=== PATIENT | male | born 1955 | race African-American/Black ===

== ENCOUNTER 2019-01-11 22:33 | Inpatient (IN) ==
[2019-01-11] MEDS ORDERED: ASPIRIN PR ONE (22:45)
[2019-01-11] MEDS ORDERED: ASPIRIN PO ONE (22:45)
[2019-01-11] MEDS ORDERED: SOLU-MEDROL IV ONE (22:53)
[2019-01-11] MEDS ORDERED: DUONEB (A & A) INH ONE (22:53)
[2019-01-11] MEDS ORDERED: LASIX IV ONE (23:20)
[2019-01-12 00:41] LABS: BASO# 0.03 X1000 (0.0-0.2); BASO% 0.5 % (0.0-0.8); EOS# 0.15 X1000 (0.0-0.7); EOS% 2.6 % (0.0-10.0); HEMATOCRIT 23.8 % (42.0-52.0); HEMOGLOBIN 7.4 g/dL (14.0-18.0); LYMPH# 0.95 X1000 (1.2-3.4); LYMPH% 16.3 % (20.5-51.1); MCHC 31.1 g/dL (33-37); MCV 86.9 FL (81-99); MONO# 0.85 X1000 (0.11-0.59); MONO% 14.6 % (1.7-9.3); MPV 10.6 FL (7.4-10.4); NEUT# 3.86 X1000 (1.4-6.5); PLT 162 X1000 (130-400); RBC 2.74 XMIL (4.7-6.1); RDW 18.1 % (11.5-14.5); WBC 5.84 X1000 (4.8-10.8)
[2019-01-12 00:47] LABS: INR 1.35; PROTIME 17.7 Seconds (11.0-16.0); PTT 37.1 Seconds (22.3-41.8)
[2019-01-12 01:00] LABS: ALB/GLOB RATIO 0.9; ALBUMIN 3.9 g/dL (3.5-5.0); CALCIUM 8.9 mg/dL (8.8-10.2); CREATININE 5.8 mg/dL (0.7-1.2); POTASSIUM 4.7 mmol/L (3.5-5.1); TOTAL BILIRUBIN 1.49 mg/dL (0.20-1.00); TOTAL PROTEIN 8.1 g/dL (6.3-8.3)
[2019-01-12 01:23] LABS: CK INDEX 2.6 (0.0-2.5); CK-MB 7.46 ng/mL (0.0-5.0)
--- NOTE | 2019-01-12 01:28 | PROVIDER DOCUMENTATION ---
This chart was entered by Christina Samuel Scribe, acting as scribe for Nadir Cabrera MD. HPI-Respiratory General - General Chief Complaint: Shortness of Breath Stated Complaint: SOB Time Seen by Provider: 01/11/19 22:50 Source: patient Allergies/Adverse Reactions: Patient Allergies Allergy/AdvReac Type Severity Reaction Status Date / Time sulfamethoxazole Allergy Unknown Verified 03/17/18 07:32 [From Bactrim] trimethoprim [From Bactrim] Allergy Unknown Verified 03/17/18 07:32 Home Medications: Home Medication List Medication Instructions Recorded Confirmed Last Taken Type Tamsulosin [Flomax] 0.4 mg PO DAILY 10/03/17 10/11/18 10/03/17 09:00 History ATORVAstatin [Lipitor] 10 mg PO QHS 03/17/18 10/11/18 Unknown History Aspirin 325 mg PO DAILY tablet 03/26/18 10/11/18 Unknown Rx Nitroglycerin Sl [Nitroglycerin] 0.4 mg SL PRN PRN tablet 03/26/18 10/11/18 Unknown Rx Famotidine [Pepcid] 40 mg PO BID #60 tab 09/28/18 10/11/18 Unknown Rx Albuterol Sulfate [Proair Hfa] 8.5 gm IH Q4H PRN PRN 10/11/18 10/11/18 Unknown History Insulin Humulin 70/30 [Humulin 30 unit SUBQ BID 10/11/18 10/11/18 Unknown History 70/30] Iron Fum,Ps/Folic/Bcomp,C No.9 1 cap PO DAILY 10/11/18 10/11/18 Unknown History [Folivane-Plus Capsule] Amlodipine [Norvasc] 5 mg PO DAILY #30 tab 10/13/18 Unknown Rx Carvedilol [Coreg] 25 mg PO BID #60 tab 10/13/18 Unknown Rx Furosemide [Lasix] 80 mg PO DAILY #30 tab 10/13/18 Unknown Rx Hydralazine [Apresoline] 10 mg PO TID #90 tab 10/13/18 Unknown Rx Isosorbide Dinitrate [Isordil] 10 mg PO TID #90 tab 10/13/18 Unknown Rx - History of Present Illness-Resp Nature of Presenting Problem: pt is a 63 yr old male presenting with 1 week hx of shortness of breath and edema, worsening tonight. pt denies any chest pain. pt hx of chf, CAD, COPD Quality of Pain: reports: none Severity in ED: reports: moderate Onset/Duration: reports: 1 week ago Timing: reports: still present, changing over time, getting worse Cough Quality/Degree: reports: no cough Episode Frequency: frequent episodes Current Respiratory Medication Therapy: Initiated albuterol (proair) Modifying Factors: improves with: albuterol inhaler (without relief) Associated Symptoms: reports: shortness of breath. denies: chest pain/soreness , cough Similar Symptoms Previously?: Yes Recently seen or treated by another doctor?: Yes Review of Systems - Adult - REVIEW OF SYSTEMS - ADULT Constitutional: reports: fatique. denies: chills, fever Eyes: denies: blurred vision, double vision Ears, Nose, Mouth & Throat: denies: ear pain, sinus problem, throat pain Cardiovascular: denies: chest pain, palpitations, syncope Respiratory: reports: shortness of breath. denies: cough Gastrointestinal: reports: no symptoms reported Genitourinary: reports: no symptoms reported Musculoskeletal: reports: no symptoms reported Integumentary: reports: no symptoms reported Neurological: denies: dizziness/vertigo, headache/migraines Psychiatric: reports: no symptoms reported Endocrine: reports: no symptoms reported Hematologic/Lymphatic: reports: no symptoms reported Allergic/Immunologic: reports: no symptoms reported All Other Systems: Reviewed and Negative Past History - Adult - PAST MEDICAL HISTORY-ADULT Review of Records: reports: Old Records Reviewed, Nursing Assessment Review, Medications Reviewed, Social history reviewed & non-contributory. Major Childhood Illnesses: reports: denies history Cardiovascular: reports: cardiac disease, angina, HTN, hyperlipidemia, ME, other (stent placement). denies: blood clots, murmur Respiratory: reports: denies history Gastrointestinal: reports: denies history Obstetrical/Gynecological: reports: denies history Genitourinary: reports: denies history Musculoskeletal: reports: denies history Neurological: reports: denies history Endocrine/Immune: reports: Diabetes Other Conditions: reports: denies history - PRIOR SURGERIES/PROCEDURES Surgical/Procedure History: reports: CABG - PRIOR HOSPITALIZATIONS Prior Hospitalizations: reports: for other non-related - IMMUNIZATION STATUS Childhood Immunizations: See Nurse Assessment Flu Vaccine: See Nurse Assessment - FAMILY HISTORY Family History: reviewed, not pertinent - SOCIAL HISTORY Smoking: non-smoker Substance Use: denies Living Situation: family Physical Exam-General - PHYSICAL EXAM-ADULT Initial Vital Signs Reviewed: Yes - CONSTITUTIONAL General Appearance: appears well, alert, no apparent distress - EYES Eyes: PERRL/EOMI - HEAD, EARS, NOSE, MOUTH & THROAT HENMT: normocephalic/atraumatic, moist mucous membranes - NECK Neck: non-tender, full range of motion, supple, normal inspection - RESPIRATORY Respiratory: chest non-tender, lungs clear, normal breath sounds, decreased breath sounds, increased rate - CARDIOVASCULAR Cardiovascular: normal peripheral pulses, regular rate, rhythm - GASTROINTESTINAL (ABDOMEN) Abdominal Exam: normal bowel sounds, non tender, soft - LYMPHATIC Lymphatic: no adenopathy - MUSCULOSKELETAL Extremity: pedal edema (3+ pitting edema) - SKIN Integumentary: normal color, normal turgor, warm/dry - NEUROLOGIC Neurologic: grossly normal, no motor/sensory deficits - PSYCHIATRIC Psych/Mental Status: normal mood/affect Progress - PLAN OF CARE/RESULTS Progress/Plan/Lab Results: Vital Signs - 8 hr 01/11/19 22:39 01/11/19 23:40 01/11/19 23:56 Temperature 98.3 F Pulse Rate 76 85 Respiratory Rate 22 16 Blood Pressure 181/79 O2 Sat by Pulse Oximetry 100 100 01/12/19 00:00 01/12/19 00:10 01/12/19 00:15 Temperature Pulse Rate 77 77 77 Respiratory Rate 19 20 19 Blood Pressure 162/68 162/68 O2 Sat by Pulse Oximetry 100 97 98 01/12/19 00:20 01/12/19 00:30 01/12/19 00:40 Temperature Pulse Rate 76 75 76 Respiratory Rate 19 16 20 Blood Pressure O2 Sat by Pulse Oximetry 98 99 98 01/12/19 00:50 01/12/19 00:56 Temperature Pulse Rate 76 76 Respiratory Rate 21 19 Blood Pressure 159/81 O2 Sat by Pulse Oximetry 95 100 Laboratory Results - last 24 hr 01/11/19 01/11/19 01/11/19 23:00 23:00 23:00 WBC 5.84 RBC 2.74 L Hgb 7.4 L Hct 23.8 L MCV 86.9 MCH 27.0 MCHC 31.1 L RDW Std Deviation 18.1 H Plt Count 162 MPV 10.6 H Neut % (Auto) 66.0 Lymph % (Auto) 16.3 L Beaver % (Auto) 14.6 H Eos % (Auto) 2.6 Baso % (Auto) 0.5 Neut # (Auto) 3.86 Lymph # (Auto) 0.95 L Beaver # (Auto) 0.85 H Eos # (Auto) 0.15 Baso # (Auto) 0.03 PT INR PTT (Actin FS) Sodium 139 Potassium 4.7 Chloride 104 Carbon Dioxide 17 L Anion Gap 18 BUN 105 H Creatinine 5.8 H Estimated GFR/1.73 m2 12 BUN/Creatinine Ratio 18 Glucose 161 H Calculated Osmolality 314 Calcium 8.9 Total Bilirubin 1.49 H AST 24 ALT 33 Alkaline Phosphatase 308 H Creatine Kinase 282 H Creatine Kinase Index 2.6 H CK-MB (CK-2) 7.46 H Troponin T Vla-U-Aiqlcqyaous Pept 9521 H Total Protein 8.1 Albumin 3.9 Globulin 4.2 Albumin/Globulin Ratio 0.9 01/11/19 01/11/19 23:00 23:00 WBC RBC Hgb Hct MCV MCH MCHC RDW Std Deviation Plt Count MPV Neut % (Auto) Lymph % (Auto) Beaver % (Auto) Eos % (Auto) Baso % (Auto) Neut # (Auto) Lymph # (Auto) Beaver # (Auto) Eos # (Auto) Baso # (Auto) PT 17.7 H INR 1.35 PTT (Actin FS) 37.1 Sodium Potassium Chloride Carbon Dioxide Anion Gap BUN Creatinine Estimated GFR/1.73 m2 BUN/Creatinine Ratio Glucose Calculated Osmolality Calcium Total Bilirubin AST ALT Alkaline Phosphatase Creatine Kinase Creatine Kinase Index CK-MB (CK-2) Troponin T 0.233 H Laa-F-Rmttycppurd Pept Total Protein Albumin Globulin Albumin/Globulin Ratio Orders Category Date Time Status Cardiac Monitoring DIRECTED Care 01/11/19 22:46 Active Oxygen Therapy- ED Nursing DIRECTED Care 01/11/19 22:46 Active Saline Loc NOW Care 01/11/19 22:46 Active CHEST-2 VIEWS [RAD] Stat Exams 01/11/19 22:46 Taken CBC WITH ELECTRONIC DIFF [HEME] Stat Lab 01/11/19 23:00 Completed CK PROFILE [SP CHEM] Stat Lab 01/11/19 23:00 Completed COMPREHENSIVE METABOLIC PANEL [CHEM] Stat Lab 01/11/19 23:00 Completed PRO B-NATRIURETIC PEPTIDE Stat Lab 01/11/19 23:00 Completed PROTIME WITH INR [COAG] Stat Lab 01/11/19 23:00 Completed PTT [COAG] Stat Lab 01/11/19 23:00 Completed TROPONIN T Stat Lab 01/11/19 23:00 Completed Albuterol 2.5MG/Ipratrop 0.5MG [Duoneb (A & A)] Med 01/11/19 22:53 Discontinued 3 ml INH NOW ONE Aspirin Med 01/11/19 22:45 Discontinued 300 mg AK NOW ONE Aspirin Med 01/11/19 22:45 Discontinued 325 mg PO NOW ONE Furosemide [Lasix] Med 01/11/19 23:20 Discontinued 60 mg IV NOW ONE Methylprednisolone Sod Succ [Solu-Medrol] Med 01/11/19 22:53 Discontinued 60 mg IV NOW ONE Aerosol Treatments Routine Oth 01/11/19 22:54 Completed Aerosol Treatments Stat Oth 01/11/19 22:54 Completed CP/SOB/Palp >45 yrs of Age Stat Oth 01/11/19 22:45 Ordered EKG [EKG] Stat Ther 01/11/19 22:46 Ordered A/P: CHF exacerbation. Pt has pitting edema +3 to mid lower leg. elevation of troponin. Gave [address] Lux will admit. Result Diagrams: 01/11/19 23:00 01/11/19 23:00 - EKG 1 Time of EKG reading by physician:: 22:44 EKG Read and Signed by:: Nadir Cabrera EKG Interpretation (*Must complete 3 of following elements*): Abnormal (cannot rule out anteroir infarct, age undetermined. st and t wave abnormality, consider inferolateral ischemia) Rate: 78 Rhythm: accelerated junctional rhythm [place]: normal - CONSULTS/PCP/HOSPITALIST Notification #1 *Consult/PCP/Hospitalist*: Dr Lux Time Discussed: 01:26 Consult Disposition: Admit Departure - Departure Date of Disposition Decision: 01/12/19 Time of Disposition Decision: :23 DIAGNOSIS: CHF exacerbation Disposition: ADMITTED INPATIENT 09 Certified Medical Emergency: Emergent Condition: Stable Additional Freetext Instructions: ED Follow Up Instructions: You have been treated by a care provider in the Emergency Department. These instructions are being provided to you so you can have an understanding of how to care for yourself upon discharge. Upon discharge from the Emergency Department, you are responsible for making arrangements for follow-up care by a physician of your choice. Take all prescribed medications as directed. Return to the Emergency Department immediately for any new or worsening symptoms. You may call the Physician Referral phone number at [phone] to obtain a list of Physicians who are taking new patients. Referrals and Follow-Ups: Bunny Billy MD [Primary Care Provider] - - Critical Care Note This patient required my direct & personal management of CC.: No Attestation - Physician/ LISSETH Attestation Patient care was provided by Advanced Practice Provider:: No The physician spent face to face time with patient:: Yes Advanced Practice Provider documentation review:: Supervising physician onsite and consulted in the evaluation and care of this patient. The physician did have a face to face encounter with the patient. This chart was documented by the indicated scribe, (Christina Samuel Scribe) and accurately reflects the services I performed and decisions made by me, Nadir Cabrera MD, as attested by the provider's signature.
--- NOTE | 2019-01-12 03:04 | HISTORY AND PHYSICAL ---
CHIEF COMPLAINT: Shortness of breath. HISTORY OF PRESENT ILLNESS: This is a 64-year-old male with history of CHF and chronic renal failure for which it has previously been recommend he get dialysis, but has refused, unfortunately, in the past but he does have dilated cardiomyopathy and chronic renal failure which, at this point, is stage IV. He came in with progressive shortness of breath over the last couple days, some cough. Positive orthopnea, positive paroxysmal nocturnal dyspnea. He does not have some chest pressure. No changes in his medications. He was here, last admitted in October, about 3 months ago. I think at that time he had CHF exacerbation as well. Workup in the ER this time also consistent with fulminant pulmonary edema. He is anemic, but he is at baseline. He has got renal failure, but he is close to his baseline. His BUN has been this high before. His creatinine has this high before, if not higher in September. Troponin is elevated, but it has been elevated previously as well. In any case, admitted for acute congestive heart failure exacerbation, systolic. PAST MEDICAL HISTORY: 1. Systolic heart failure, EF of about 30% based on his last echo, with wall motion abnormalities. 2. Chronic renal failure stage 4. 3. CAD status post CABG. 4. Insulin-dependent diabetes. 5. Hypertension. 6. Hyperlipidemia. 7. BPH. 8. History of osteomyelitis his right great toe with removal. This was done at [facility]. PAST SURGICAL HISTORY: 1. The Achilles tendon surgery. 2. Right great toe amputation. 3. CABG, which was 2000. 4. PCI. 5. Cataract surgery. FAMILY HISTORY: CAD in mother and father. Diabetes in son with hypertension. SOCIAL HISTORY: Nonsmoker. No alcohol. . REVIEW OF SYSTEMS: Constitutional: No weight gain. Chest: Chest pain. Pulmonary: As described. gastrointestinal: No vomiting. He has had some intermittent nausea. No emesis. Genitourinary: Diminished urine output. PHYSICAL EXAM: VITAL SIGNS: Blood pressure is 153/70, heart rate 73, respiratory rate 20, temperature was 98.3 degrees. GENERAL: A well-developed male in some distress associated with edema. EYES: Pupils equal, round, reactive to light. Extraocular moves were intact. EAR/NOSE/THROAT: Moist mucous membranes. NECK: Supple. CARDIOVASCULAR: Regular rate and rhythm. No murmurs, gallops, or rubs, although diminished. PULMONARY: He had fairly clear, some faint rales at the bases, but really not as bad as I would anticipate. GASTROINTESTINAL: Soft, nontender, nondistended. Bowel sounds are positive. EXTREMITIES: He had 2 to 3+ in his left lower extremity. His right extremity is in a cast. NEUROLOGIC: Nonfocal. MUSCULOSKELETAL: 4/5 in all 4 extremities. SKIN: Clean, dry, intact. LABORATORY DATA: Today BUN and creatinine 105 and 5.8, when he was discharged it was 72 and 3.9. Hemoglobin and hematocrit 7 and 23, but it has been that way since September. I do not think we did a blood gas today. Chest x-ray clearly shows bilateral interstitial edema which has worsened since last admission with cardiomegaly. I do not clearly see an infiltrate. He has cephalization of vessels. There may be some right middle lobe, and I think that maybe is cephalization of vessels. EKG did not show anything ischemic. ASSESSMENT: A 63-year-old gentleman with history of congestive heart failure, who presents with congestive heart failure exacerbation. 1. Acute congestive heart failure exacerbation, systolic. We will continue diuresis, which will probably have to be high dose because of his renal dysfunction. Follow closely. Continue other supportive measures. He had an echo done about 3 months ago, which showed an ejection fraction at 30%, which is where he has been. I am not going to repeat that, at this point; however, I will go and get on cardiology to reconsult. Ischemic workup was negative. At this point, it just may have progressed to where dialysis ultrafiltration is the next step and just have to talk him into requiring that. We will follow. 2. Acute chronic obstructive pulmonary disease exacerbation. His wheezing has improved. I am going to hold further steroids, they were instituted in the in the ER. 3. Diabetes. We will check A1c. Follow blood sugars. Continue sliding scale insulin. 4. Chronic renal failure stage 4. I think he is kind of at baseline for him, although with his progressive azotemia I think we are going to run into some issues if we do not continue to. We may have to more strongly consider dialysis. I will go ahead and consult Dr. Marc for evaluation as well. cc: MD Bunny Martinez MD
[2019-01-12] MEDS ORDERED: NITROGLYCERIN SL PRN (03:05)
[2019-01-12] MEDS ORDERED: DUONEB (A & A) INH PRN (03:05)
[2019-01-12] MEDS: DUONEB (A & A) INH SCH ×4 (04:30→21:00)
[2019-01-12 04:34] LABS: CK INDEX 2.8 (0.0-2.5); CK-MB 8.52 ng/mL (0.0-5.0)
[2019-01-12] MEDS: HUMULIN R SUBQ SCH ×5 (06:26→23:02)
[2019-01-12] MEDS: HEPARIN SUBQ SCH ×2 (06:30→17:01)
[2019-01-12 06:32] LABS: URINE SOURCE CATH
[2019-01-12 06:35] LABS: BILIRUBIN URINE NEGATIVE (NEGATIVE); BLOOD URINE NEGATIVE (NEGATIVE); COLOR YELLOW; GLUCOSE URINE NEGATIVE (NEGATIVE); KETONE URINE NEGATIVE (NEGATIVE); LEUKOCYTES URINE TRACE (NEGATIVE); NITRITE URINE NEGATIVE (NEGATIVE); PROTEIN URINE TRACE mg/dL (NEGATIVE); SP GRAVITY URINE 1.001; TURBIDITY URINE CLEAR (CLEAR); UROBILINOGEN URINE NORMAL (NORMAL)
[2019-01-12 06:36] LABS: UR EPITHELIAL CELLS <10 /HPF (<10); URINE BACTERIA NEGATIVE /HPF; URINE RBC <10 /HPF (<10); URINE WBC <10 /HPF (<10)
--- NOTE | 2019-01-12 07:24 | Diag Imaging Result Doc PS360 ---
EXAM: CHEST-2 VIEWS 01/11/2019 HISTORY: sob TECHNIQUE: AP and lateral chest COMMENT: There are sternotomy wires. There is cardiomegaly. There is a left coronary stent and multiple anterior mediastinal surgical clips are present. There is increased alveolar and interstitial opacity compared to 10/11/2018. The atelectasis previously present in the lung bases has improved. IMPRESSION: Cardiomegaly and pulmonary edema. Electronically signed by Rashid Bean 01/12/2019 7:22 AM
[2019-01-12 08:09] LABS: CK INDEX 2.7 (0.0-2.5); CK-MB 7.62 ng/mL (0.0-5.0)
--- NOTE | 2019-01-12 08:14 | EKG Report ---
Test Performed on : 01/11/2019 10:44:24 PM Test Reason : sob Blood Pressure : / mmHG Vent. Rate : 078 BPM Atrial Rate : 078 BPM P-R Int : 000 ms QRS Dur : 102 ms QT Int : 402 ms P-R-T Axes : 000 006 194 degrees QTc Int : 458 ms Accelerated Junctional rhythm. Cannot rule out Anterior infarct , age undetermined ST & T wave abnormality, consider inferolateral ischemia Abnormal ECG When compared with ECG of 12-OCT-2018 08:56, Junctional rhythm. has replaced Sinus rhythm. Unconfirmed Result
--- NOTE | 2019-01-12 09:09 | NEPHROLOGY CONSULTATION ---
DATE: 01/12/2019 REASON FOR ADMISSION: Increased work of breathing. REASON FOR CONSULTATION: Acute kidney injury on chronic kidney disease stage 4. CONSULTING PHYSICIAN: Siddharth Lux MD HISTORY OF PRESENT ILLNESS: Mr. Lomeli is a 64-year-old male who is known to our outpatient services for chronic kidney disease stage 4 to 5. The patient was last seen in our office in October with a BUN of 72 and a creatinine of 3.9. His baseline is about 3.9 to 4.5. The patient stated that he started having increased work of breathing 2 weeks prior to coming into the emergency room. He stated it started getting worse on the day that he did present. He has a history of CHF with chronic renal failure with previous recommendations of starting hemodialysis. The patient had refused at that time. He does have a history of dilated cardiomyopathy with positive orthopnea, paroxysmal nocturnal dyspnea. The patient states that he has been eating well. He has just trace lower extremity edema that he has noted to the lower extremities. He has an appointment in our office this a.m. and unfortunately has had an exacerbation of his CHF. In the emergency room it was consistent with fulminant pulmonary edema. He remains anemic, but is at his historical baseline. Creatinine is elevated at 5.8 with a BUN of 105. The patient was treated with diuretic therapy IV. Troponins are elevated, more than likely secondary to his chronic renal failure. Subsequently, the patient does deny that he has any fever or chills. No nausea or vomiting. No recent diarrhea. No increase in his lower extremity swelling. No complaints of chest pain. Positive for increased work of breathing. The patient is to be admitted for congestive heart failure with exacerbation and systolic heart failure and acute kidney injury. PAST MEDICAL HISTORY: Systolic heart failure, his last noted ejection fraction was noted to be 30%, performed on 10/11/2018; CKD stage 4 with a baseline creatinine of 3.9 to 4.4; coronary artery disease, status post CABG; insulin-dependent diabetes mellitus type 2, hypertension, hyperlipidemia, BPH; history of osteomyelitis to the right great toe with removal, this was performed at [facility]. He has anemia of chronic disease. He has osteodystrophy of chronic disease. PAST SURGICAL HISTORY: Achilles tendon surgery, right great toe amputation, CABG in 2000. He has had a PCI, cataract surgery. SOCIAL HISTORY: He is . He lives with his spouse. He denies alcohol or illicit drug use. No smoking. FAMILY HISTORY: Mother and father with coronary artery disease, diabetes, son with hypertension. No end-stage renal disease. ALLERGIES: Listed as sulfa and trimethoprim. MEDICATIONS: His medications taken at home are Flomax, Lipitor, aspirin, nitroglycerin, Pepcid, Humulin 70/30, Norvasc, Coreg, Lasix, albuterol sulfate inhaler, and Folivane B- complex vitamin. REVIEW OF SYSTEMS: The review of systems x10 with pertinent positives listed above in the HPI. VITAL SIGNS: His most recent vital signs, last temperature 97.8 degrees, blood pressure 156/87, heart rate 74, respirations 18. He is currently on 2 liters nasal cannula. Last recorded saturation 94% with the head of the bed elevated. He has had 300 mL in and 450 mL out to Llamas catheter. DIAGNOSTIC DATA: Labs, sodium is 139, potassium 4.7, with a BUN of 105 and creatinine 5.8. He has labs ordered this a.m. These have not been completed. Hemoglobin is 7.4; this was performed yesterday evening on his admission. PHYSICAL EXAMINATION: General: This is a 63-year-old male. He is currently resting quietly in bed. He appears in no acute distress, though he appears chronically ill. Skin: Warm and dry. HEENT: Normocephalic, atraumatic. Conjunctivae are pale. He has VALORIE. Mucous membranes are dry. Neck: Supple. Trachea midline. He has positive JVD at the 6 cm nathan. Cardiovascular: Regular rate and rhythm. He is tachycardic. He has an S4 with a soft systolic murmur. Lungs: He has coarse respirations. No crackles noted. His O2 remains on with equal excursion. Abdomen: Soft, slightly distended, nontender, positive bowel sounds. Genitourinary: Llamas catheter is in place. Extremities: He does have 1 to 2+ lower extremity edema. This is up into the knee/hip area. Integumentary: No rashes or lesions evident. Please note that his right extremity is in a cast. Neurological: He is alert and oriented x3. ASSESSMENT AND PLAN: 1. Acute kidney injury on chronic kidney disease stage 4. The patient has an elevated BUN and creatinine of 105 and 5.8 respectively. He has had documented adequate urine out at this time in the last 12 hours. He does have positive jugular venous distention with lower extremity swelling. We are waiting for labs pending this morning. 2. Fluid volume overload. The patient has positive jugular venous distention with lower extremity swelling. We will change his Lasix to 200 mg every 8 hours in an attempt to improve his congestive heart failure and his fluid volume status. We have discussed that if this does not work that he may possibly require hemodialysis. The patient states understanding, and we will revisit this conversation in the morning. 3. Electrolytes. The patient's labs look stable. 4. Acid-base balance. The patient has metabolic acidosis. He does have a slightly elevated anion gap. We will monitor and evaluate further on his oxygenation improvement. 5. Anemia. The patient's hemoglobin is 7.4. It has been this low in the past. We will determine if the patient is to receive Epogen during his hospitalization. I will check an anemia panel. 6. Congestive heart failure, systolic. The patient requires oxygenation. He is also on Lasix. We have increased his Lasix to 200 mg every 8 hours. We will evaluate a fluid status at that time. I would like to thank you for allowing us to follow with this patient. Dictated by LUPE Garcia for Bobby Marc MD Face to face encounter, data reviewed, discussed with Terese White on 01/12/19. I agree with the above assessment and plan of care. cc: LUPE Garcia MD Stephen W. Harbin, MD [facility]
[2019-01-12] MEDS: FLOMAX PO SCH (10:12)
[2019-01-12] MEDS: NORVASC PO SCH (10:13)
[2019-01-12] MEDS: COREG PO SCH ×2 (10:13→20:05)
[2019-01-12] MEDS: ICAR-C PLUS PO SCH (10:13)
[2019-01-12] MEDS: PEPCID PO SCH ×2 (10:13→20:04)
[2019-01-12] MEDS ORDERED: LASIX ONE (10:21)
[2019-01-12] MEDS: LASIX IV SCH ×3 (10:21→23:04)
[2019-01-12] MEDS ORDERED: INSULIN PEN NEEDLES ONE (10:21)
[2019-01-12] MEDS: HUMULIN 70/30 SUBQ SCH ×2 (10:21→20:05)
[2019-01-12] MEDS ORDERED: LASIX IV SCH (11:00)
[2019-01-12] MEDS ORDERED: TRANDATE PO SCH (13:00)
[2019-01-12] MEDS ORDERED: ISORDIL PO SCH (13:00)
[2019-01-12] MEDS ORDERED: LABETALOL IV PRN (13:00)
--- NOTE | 2019-01-12 14:22 | CONSULTATION ---
DATE OF CONSULTATION: 01/12/2019 IMPRESSION: 1. Very mildly elevated troponin. I suspect this is related to a combination of congestive heart failure and advanced renal dysfunction in the setting of severe ischemic cardiomyopathy. 2. Advanced renal dysfunction. 3. Atherosclerotic coronary disease with history of previous coronary bypass surgery and ischemic cardiomyopathy with left ventricular ejection fraction of 30%. 4. Diabetes mellitus requiring insulin for control. 5. Hypertension. 6. Hyperlipidemia. RECOMMENDATIONS: 1. Agree with diuresis as best possible. The patient may require hemodialysis. 2. Continue medical management of patient's severe ischemic cardiomyopathy. 3. Patient counseled regarding need for sodium restriction. 4. Given elevated blood pressure, add hydralazine and isosorbide. HISTORY: This 63-year-old male with past history of ischemic cardiomyopathy with left ventricular ejection fraction of 30%, chronic kidney disease stage 4, previous coronary bypass surgery, diabetes mellitus, hypertension, and hyperlipidemia, who was admitted with progressive dyspnea and congestive heart failure. Troponin was very mildly elevated prompting Cardiology consultation. The patient relates that he has had difficulty in the past with a tendency for congestive heart failure for which he has taken Lasix. He has had progressive shortness of breath, lower extremity edema, and orthopnea over the last several weeks. There has been no angina. He has been found to have progression of his advanced kidney disease and efforts to diurese have met with modest returns. Further efforts are underway. Patient is not interested in dialysis in the past but he is reconsidering. PAST MEDICAL HISTORY: 1. Atherosclerotic coronary disease with history of coronary bypass surgery in the past and ischemic cardiomyopathy with left ventricular ejection fraction of 30%. 2. Chronic kidney disease stage 4 in the past now progressive. 3. Diabetes mellitus requiring insulin for control. 4. Hypertension. 5. Hyperlipidemia. 6. Prostate hypertrophy. 7. History of previous osteomyelitis. 8. Anemia. 9. Gastroesophageal reflux disease. PAST SURGICAL HISTORY: Includes Achilles tendon surgery, right great toe amputation, coronary artery bypass grafting in 2000, cataract extraction, and previous coronary angioplasty/stenting to left anterior descending coronary in 2000. ALLERGIES: He is allergic or intolerant to sulfa and trimethoprim. MEDICATIONS PRIOR TO ADMISSION: As listed. SOCIAL HISTORY: He is . He is retired. He does not smoke or use alcohol. FAMILY HISTORY: Positive for coronary artery disease and diabetes mellitus as well as hypertension. REVIEW OF SYSTEMS: Pulmonary: Noteworthy for dyspnea and orthopnea. He has had some cough. Gastrointestinal: Noncontributory. Constitutional: Noncontributory. Remainder of review of systems negative/noncontributory with 14 total systems reviewed. PHYSICAL EXAMINATION: General: This is a pleasant, older, middle-aged -[place] male in no distress on supplemental oxygen per nasal cannula. Vital signs: Blood pressure 171/94. Heart rate 84. HEENT: Extraocular movements appear intact. Mucous membranes are moist. Neck: Supple. Jugular venous distention is evident consistent with significantly elevated central venous pressure. Chest: Auscultation of the chest reveals bibasilar inspiratory crackles. Cardiac: Exam reveals a regular rate and rhythm without appreciable murmur or gallop. Abdomen: Soft. Bowel sounds audible. Extremities: Demonstrate moderate pretibial edema. Neurologic: Exam reveals him to be alert and fully oriented. Speech is fluent. Moves all 4 extremities equally well. Skin: Warm and dry. Psychiatric: Reveals mood to be appropriate. PERTINENT DATA: Twelve lead EKG demonstrates baseline artifact in sinus rhythm and nonspecific ST and T-wave abnormality. LABORATORY DATA: Includes sodium 139, potassium 4.7, chloride 104, carbon dioxide 17, BUN 105, creatinine 5.8, glucose 161. Pro natriuretic peptide level 9521. Initial troponin T 0.233. Follow-up troponin T 0.198 and 0.189 respectively. CPK 305. CPK MB 8.52. CPKMB index 2.8. White blood cell count 5.8, hematocrit 23.4, hemoglobin 7.4 and platelet count 162,000. Chest x- ray reports cardiomegaly and pulmonary edema. cc: MD Bunny Odom MD
[2019-01-12] MEDS: BIDIL PO SCH ×2 (15:02→17:07)
[2019-01-12] MEDS: LIPITOR PO SCH (20:04)
[2019-01-12] MEDS: LASIX 200 MG in NS 25 ML IV SCH (23:50)
[2019-01-13] MEDS: HEPARIN SUBQ SCH ×2 (06:21→17:28)
[2019-01-13] MEDS: LASIX 200 MG in NS 25 ML IV SCH ×3 (06:21→22:04)
[2019-01-13] MEDS: DUONEB (A & A) INH SCH ×4 (06:23→22:45)
[2019-01-13 06:28] LABS: HEMATOCRIT 22.4 % (42.0-52.0); HEMOGLOBIN 6.7 g/dL (14.0-18.0); IMM GRAN# 0.02 X1000 (0.0-0.04); IMM GRAN% 0.3 % (0.0-0.5); LYMPH# 0.87 X1000 (1.2-3.4); LYMPH% 12.3 % (20.5-51.1); MCH 25.5 PG (27-31); MCHC 29.9 g/dL (33-37); MCV 85.2 FL (81-99); MONO# 1.04 X1000 (0.11-0.59); MONO% 14.8 % (1.7-9.3); MPV 10.9 FL (7.4-10.4); NEUT# 5.12 X1000 (1.4-6.5); NEUT% 72.6 % (42.2-75.2); PLT 158 X1000 (130-400); RBC 2.63 XMIL (4.7-6.1); RDW 18.2 % (11.5-14.5); WBC 7.05 X1000 (4.8-10.8)
[2019-01-13] MEDS: HUMULIN R SUBQ SCH ×4 (06:33→21:20)
[2019-01-13 06:38] LABS: HEMOGLOBIN A1C 6.4 % (4.8-6.0)
--- NOTE | 2019-01-13 06:42 | Diag Imaging Result Doc PS360 ---
EXAM: CHEST-PORTABLE HISTORY: dyspnea TECHNIQUE: Portable chest single view COMPARISON: 01/11/2019 FINDINGS: The lungs are well expanded. The heart is enlarged. Sternal wires are present. The vessels are less distended. There are no infiltrates. No effusion identified. IMPRESSION: Interval improvement. Cardiomegaly remains although there is decreased pulmonary edema. Electronically signed by Jr Weaver 01/13/2019 6:40 AM
[2019-01-13 06:43] LABS: CALCIUM 8.4 mg/dL (8.8-10.2); CREATININE 5.6 mg/dL (0.7-1.2); POTASSIUM 4.8 mmol/L (3.5-5.1)
[2019-01-13 06:55] LABS: IRON SATURATION 14 %; TIBC 248 ug/dL; TOTAL IRON 35 ug/dL (53-167); UNBOUND IRON 213 ug/dL (112-346)
[2019-01-13 06:57] LABS: FERRITIN 528 ng/mL (30-400)
[2019-01-13] MEDS: PEPCID PO SCH ×2 (08:50→21:20)
[2019-01-13] MEDS: FLOMAX PO SCH (08:50)
[2019-01-13] MEDS: NORVASC PO SCH (08:51)
[2019-01-13] MEDS: BIDIL PO SCH ×3 (08:51→17:28)
[2019-01-13] MEDS: HUMULIN 70/30 SUBQ SCH ×2 (08:51→22:04)
[2019-01-13] MEDS: ICAR-C PLUS PO SCH (08:51)
[2019-01-13] MEDS: COREG PO SCH ×2 (08:51→21:20)
[2019-01-13] MEDS ORDERED: TYLENOL PO ONE (13:11)
[2019-01-13] MEDS ORDERED: BENADRYL PO ONE (13:11)
--- NOTE | 2019-01-13 13:56 | PROGRESS NOTE ---
DATE: 01/13/2019 SUBJECTIVE: Patient overall breathing better. He has a Llamas catheter in place and he has urine output, although it is very dark. Hemoccult testing was done due to anemia and is negative. He is still talking with Dr. Marc regarding his decision about hemodialysis. OBJECTIVE: Vital Signs: Afebrile, pulse 67, respirations 16, O2 saturation on 2 L 99%, blood pressure 149/66. I and Os 480 in and 900 out, whereas yesterday he was -1250. He is eating 100% of his meals. CV: RRR without distinct murmur. Lungs: Clear. Abdomen: Nontender, nondistended. Extremities: 2+ lower extremity edema. Right foot is bandaged currently. Neurologic: Cranial nerves are intact. LABS: White count 7.05, hemoglobin 6.7 down from 7.4, platelets 158. Sodium 138, potassium 4.8, chloride 104, CO2 18. BUN 136, creatinine 5.6, glucose 131, calcium 8.4. Again, Hemoccult testing negative. Wound culture growing out some gram-negative rods from the wound on his right foot. Urine culture no growth. ASSESSMENT: 1. Congestive heart failure, acute on chronic systolic and diastolic. 2. Renal failure. 3. Right foot wound followed by a physician in [place] and at the [facility] in [place] per Dr. Carrera with use of Mesalt topically. 4. Pronounced anemia, iron deficiency in nature, thought related to renal insufficiency. 5. Insulin-dependent diabetes mellitus. 6. Coronary artery disease. 7. Hypertension. 8. Hyperlipidemia. 9. Benign prostatic hypertrophy. PLAN: Patient is on extremely high doses of Lasix 200 mg IV q. [address] Marc and Dr. Villa have both consulted on the case and have him on high doses of anti hypertensives as well to try to improve his blood pressure control. This includes isosorbide dinitrate/hydralazine 1 t.i.d., Coreg 25 b.i.d., Norvasc 5 mg daily. He is on SSI with serial Accu-Cheks, and he is on 30 units subcutaneous, Humulin 70/30 insulin b.i.d. in addition to the low-dose SSI. Home medications of Lipitor and Flomax are being continued. He is on some DuoNeb treatments q. 6 hours. He is on prophylaxis of DVT with heparin subcutaneous. I am going to give him 1 unit of blood today and monitor his hemoglobin closely, and he may require EPO per Nephrology. The patient is still contemplating whether he plans to submit to hemodialysis treatments. Continue iron supplementation. cc: Bunny Billy MD
[2019-01-13] MEDS ORDERED: NS 500 ML IV ONE (16:00)
--- NOTE | 2019-01-13 18:38 | NEPHROLOGY PROGRESS NOTE ---
DATE: 01/13/2019 TIME SEEN: 0655. SUBJECTIVE: Mr. Lomeli is resting quietly in bed. Head of the bed is slightly elevated. States that his breathing has improved, though he does continue with a productive cough. OBJECTIVE: His most recent vital signs: Temperature 98.7, blood pressure 149/60, heart rate 68, respirations 20. He is on 2 L nasal cannula. Last recorded saturation 100%. He has had 800 mL in, 2050 out to Llamas catheter. He is in a -1 L fluid balance for 48 hours. LABS: Sodium 138, potassium 4.8, chloride 104, CO2 of 18, BUN 136, creatinine 5.6, glucose is 131. Anion gap is 16, calcium is 8.4. White count 7.05, hemoglobin 6.7, hematocrit 22.4, platelet count 158. PHYSICAL EXAMINATION: General: This is a 63-year-old, male. He is resting quietly in bed. He appears chronically ill no acute distress. Skin: Warm and dry. HEENT: Normocephalic, atraumatic. Conjunctiva is pale pink. He has VALORIE. Mucous membranes are dry. Neck: Supple. Trachea midline. He has positive JVD. Cardiovascular: Regular rate and rhythm. He has a systolic murmur present. Lungs: Have coarse rhonchi. He remains on O2, equal excursion. Abdomen: Soft, nontender. Positive bowel sounds. Genitourinary: Not inspected. Patient has adequate out to Llamas catheter, dark yellow urine. Extremities: Have 2 to 3+ lower extremity edema. ASSESSMENT AND PLAN: 1. Acute kidney injury on chronic kidney disease stage 4. Patient's BUN and creatinine remain elevated. Creatinine is at 5.6, 5.8 yesterday with a BUN today of 136. We have discussed with the patient that he is in fluid volume overload. He is on the border of requiring hemodialysis start. The patient states that he is still unsure. Due to this aspect, we had instructed him that we would have our dialysis nurse come over today to the hospital to present the types of dialysis either home peritoneal dialysis or in center hemodialysis. This was completed this am. Patient and were present. They are leaning towards hemodialysis. I will talk with them again in the morning for possible indications to proceed with placement of tunneled catheter. The patient remains with positive jugular venous distention, though he has responded nicely to the IV Lasix. 2. Fluid volume overload. Patient's BUN is elevated secondary to receiving Lasix 200 mg every 8 hours. We will continue this over the next 24 hours. If patient continues to remain where he is at, we have discussed that we will possibly need to start hemodialysis for fluid volume management since he cannot go home on his large doses of Lasix. The patient states understanding today. 3. Electrolytes and acid-base balance. Patient remains acidotic secondary to #1. 4. Anemia. Patient's hemoglobin has dropped to 6.7 from 7.4 yesterday. The patient has a unit of packed red blood cells ordered with orders to transfuse per Dr. Billy. We will monitor and evaluate his labs in the a.m. 5. The patient as noted, he does continue on heparin 5000 units subcu. I would like to thank you for allowing us to follow with this patient. Dictated by LUPE Garcia for Bobby Marc MD Face to face encounter, data reviewed, discussed with Terese White on 01/13/19. I agree with the above assessment and plan of care. cc: LUPE Garcia MD Stephen W. Harbin, MD [facility]ALKiera
[2019-01-13] MEDS: LIPITOR PO SCH (21:20)
--- NOTE | 2019-01-14 03:56 | PROGRESS NOTE ---
DATE: 01/13/2019 ADDENDUM: ASSESSMENT: Additionally, the patient has a right foot wound. PLAN: Continue treatment as recommended by wound care nurse and has been on treatment at the wound clinic in [place]. Had been on antibiotics. We are going to follow his culture here, keeping in mind that this would have some degree of colonization of the wound. We will follow this and make sure he does not need antibiotics added in the next couple of days. cc: Bunny Billy MD
[2019-01-14] MEDS: DUONEB (A & A) INH SCH ×4 (04:02→21:35)
[2019-01-14] MEDS: HEPARIN SUBQ SCH ×2 (06:02→17:30)
[2019-01-14] MEDS: LASIX 200 MG in NS 25 ML IV SCH ×2 (06:09→17:31)
[2019-01-14] MEDS: HUMULIN R SUBQ SCH ×4 (06:10→22:09)
[2019-01-14 06:13] LABS: BASO# 0.02 X1000 (0.0-0.2); BASO% 0.3 % (0.0-0.8); EOS# 0.14 X1000 (0.0-0.7); HEMATOCRIT 24.9 % (42.0-52.0); HEMOGLOBIN 7.8 g/dL (14.0-18.0); IMM GRAN# 0.02 X1000 (0.0-0.04); IMM GRAN% 0.3 % (0.0-0.5); LYMPH# 1.53 X1000 (1.2-3.4); LYMPH% 21.7 % (20.5-51.1); MCH 26.4 PG (27-31); MCHC 31.3 g/dL (33-37); MCV 84.1 FL (81-99); MONO# 0.84 X1000 (0.11-0.59); MONO% 11.9 % (1.7-9.3); MPV 11.3 FL (7.4-10.4); NEUT# 4.49 X1000 (1.4-6.5); NEUT% 63.8 % (42.2-75.2); PLT 164 X1000 (130-400); RBC 2.96 XMIL (4.7-6.1); RDW 17.5 % (11.5-14.5); WBC 7.04 X1000 (4.8-10.8)
[2019-01-14 06:27] LABS: CALCIUM 8.9 mg/dL (8.8-10.2); CREATININE 5.5 mg/dL (0.7-1.2); POTASSIUM 4.4 mmol/L (3.5-5.1)
[2019-01-14] MEDS: FLOMAX PO SCH (09:23)
[2019-01-14] MEDS: COREG PO SCH ×2 (09:23→22:08)
[2019-01-14] MEDS: NORVASC PO SCH (09:23)
[2019-01-14] MEDS: PEPCID PO SCH ×2 (09:23→22:08)
[2019-01-14] MEDS: ICAR-C PLUS PO SCH (09:24)
[2019-01-14] MEDS: BIDIL PO SCH ×3 (09:24→17:30)
[2019-01-14] MEDS: HUMULIN 70/30 SUBQ SCH ×2 (09:24→22:08)
[2019-01-14] MEDS: ZOSYN 2.25 GM in NS 50 ML IV SCH ×2 (13:07→18:04)
--- NOTE | 2019-01-14 14:07 | PROGRESS NOTE ---
DATE: 01/14/2019 SUBJECTIVE: The patient remains stable. He is still contemplating hemodialysis and has consulted with Dr. Marc and his staff in great detail. OBJECTIVE: Vital Signs: Afebrile, pulse 70, respirations 18, blood pressure 161/75, O2 saturation on 2 L 98%. I and Os 1710 in and 4150 out. He is eating his meals fairly well. Wound culture has grown out Serratia, which is sensitive to Rocephin. Blood sugars in the 100s. White count 7.04, hemoglobin up to 7.8 after 1 unit of PRBCs transfused yesterday. Platelets 164. Sodium 138, potassium 4.4, chloride 103, CO2 17. BUN 142, creatinine 5.5. ASSESSMENT: 1. Congestive heart failure, acute on chronic systolic and diastolic, improving with high dose Lasix. 2. Renal failure with patient still unwilling to fully submit to hemodialysis. 3. Right foot wound culturing out Serratia followed in [place] and at the [facility] in [place]. 4. Anemia of chronic disease, improved after 1 unit packed red blood cells transfused yesterday. 5. Insulin-dependent diabetes mellitus. 6. Coronary artery disease. 7. Hypertension. 8. Hyperlipidemia. 9. Benign prostatic hypertrophy. PLAN: Due to the Serratia growing out of the wound, we will start Rocephin. Continue Lasix. Nephrology Team has decreased Lasix to 200 mg IV q. 12 hours. The patient is in talks with them regarding his dialysis. Continue SSI and his other medications of hydralazine, Imdur, Coreg, Norvasc, home dosage of Humulin 70/30 insulin with SSI as required. He also remains on Lipitor and Flomax. He is on DVT prophylaxis with subcutaneous heparin. Continue to monitor his hemoglobin closely. Keep him on H 2 samir as well for GI prophylaxis of peptic ulcer disease. cc: Bunny Billy MD
[2019-01-14] MEDS: ROCEPHIN 1 GM in NS 50 ML IV SCH (14:57)
--- NOTE | 2019-01-14 15:30 | NEPHROLOGY PROGRESS NOTE ---
DATE: 01/14/2019 TIME SEEN: 0750 SUBJECTIVE: Mr. Lomeli continues to rest quietly. Head of the bed is elevated. He states that he is feeling a little bit better. Complains of slight pain to his right foot. OBJECTIVE: Vital Signs: Temperature 98.9 degrees, blood pressure 163/68, heart rate 69, respirations 20, he is on room air, last recorded saturation is 98%, he has had 1710 in, 3200 out to Llamas catheter. LAB: Sodium 138, potassium 4.4, chloride 103, CO2 17, BUN 142, creatinine is 5.5, glucose is 144, anion gap of 18, his calcium is 8.9. White count 7.04, hemoglobin 7.8, hematocrit 24.9 with a platelet count of 164,000. The patient's right wound foot has grown gram- negative rods. PHYSICAL EXAMINATION: General: This is a 63-year-old male resting quietly in bed. Skin: Warm and dry. HEENT: Normocephalic, atraumatic. Conjunctiva is pale. He has VALORIE. Mucous membranes are dry. Neck: Supple. Trachea midline and he continues with positive JVD. Cardiovascular: He is regular rate and rhythm. He has a systolic murmur present. Lungs: Basically clear anteriorly with some expiratory wheezes on expiration, remains on room air. Abdomen: Soft, nontender. Positive bowel sounds. Genitourinary: Not inspected. Adequate urine out documented. Extremities: Continues with 2 to 3+ lower extremity edema though this is somewhat softer than yesterday. Neurological: Alert and oriented x3. ASSESSMENT AND PLAN: 1. Acute kidney injury on chronic kidney disease stage 4. Patient's BUN has continued to elevate. Creatinine has slightly improved. I have discussed dialysis plans with the patient. He states that he would prefer hemodialysis after discussions with his with our dialysis nurse yesterday. It is indicated to the patient that his BUN is elevated and his creatinine is fairly stable, adequate urine out. He states that he does not want any plans for dialysis at this time. I have indicated that dialysis may be eminent during this hospital stay. 2. Fluid volume overload. We will change his Lasix from 200 mg IV q.8 hours to q.12 hours and have discussed possibly weaning this down. This may also be contributing to his elevated BUN. 3. Electrolytes and acid-base balance. These are acceptable. 4. Anemia. This remains low. We will defer to the primary care team for intervention. 5. Positive wound culture. This is followed by the primary care team. Cultures are currently pending. We will go ahead and start patient on Zosyn renal dosing. Like to thank you for allowing us to follow with this patient. Dictated by LUPE Garcia for Bobby Marc MD cc: LUPE Garcia MD Stephen W. Harbin, MD [facility]
[2019-01-14] MEDS ORDERED: INSULIN PEN NEEDLES ONE (16:08)
[2019-01-14] MEDS: LIPITOR PO SCH (22:08)
[2019-01-15] MEDS: DUONEB (A & A) INH SCH ×4 (03:34→21:07)
[2019-01-15] MEDS: ZOSYN 2.25 GM in NS 50 ML IV SCH ×3 (03:56→18:28)
[2019-01-15] MEDS: HEPARIN SUBQ SCH ×2 (05:45→18:16)
[2019-01-15] MEDS: LASIX 200 MG in NS 25 ML IV SCH ×2 (05:48→18:14)
[2019-01-15 06:14] LABS: BASO# 0.02 X1000 (0.0-0.2); BASO% 0.3 % (0.0-0.8); EOS# 0.24 X1000 (0.0-0.7); EOS% 3.4 % (0.0-10.0); HEMOGLOBIN 7.8 g/dL (14.0-18.0); IMM GRAN# 0.03 X1000 (0.0-0.04); IMM GRAN% 0.4 % (0.0-0.5); LYMPH# 1.28 X1000 (1.2-3.4); LYMPH% 17.9 % (20.5-51.1); MCH 26.3 PG (27-31); MCHC 31.2 g/dL (33-37); MCV 84.2 FL (81-99); MONO# 1.03 X1000 (0.11-0.59); MONO% 14.4 % (1.7-9.3); MPV 11.2 FL (7.4-10.4); NEUT# 4.54 X1000 (1.4-6.5); NEUT% 63.6 % (42.2-75.2); PLT 159 X1000 (130-400); RBC 2.97 XMIL (4.7-6.1); RDW 17.4 % (11.5-14.5); WBC 7.14 X1000 (4.8-10.8)
[2019-01-15 07:02] LABS: CALCIUM 8.9 mg/dL (8.8-10.2); CREATININE 5.4 mg/dL (0.7-1.2)
[2019-01-15] MEDS: HUMULIN R SUBQ SCH ×4 (07:35→22:28)
[2019-01-15] MEDS: PEPCID PO SCH ×2 (09:36→22:21)
[2019-01-15] MEDS: COREG PO SCH ×2 (09:36→22:21)
[2019-01-15] MEDS: NORVASC PO SCH (09:37)
[2019-01-15] MEDS: FLOMAX PO SCH (09:37)
[2019-01-15] MEDS: ICAR-C PLUS PO SCH (09:37)
[2019-01-15] MEDS: BIDIL PO SCH ×3 (09:38→18:16)
[2019-01-15] MEDS: HUMULIN 70/30 SUBQ SCH ×3 (09:39→22:28)
[2019-01-15] MEDS: SODIUM BICARBONATE PO SCH ×2 (12:02→22:20)
--- NOTE | 2019-01-15 13:39 | Diag Imaging Result Doc PS360 ---
EXAM: SHOULDER-LEFT 01/15/2019 HISTORY: pain TECHNIQUE: Left shoulder two views COMMENT: There are degenerative changes in the acromioclavicular joint. There is subchondral cyst formation in the greater tuberosity of the humerus. There is no evidence of acute fracture or dislocation. IMPRESSION: Degenerative changes. Electronically signed by Rashid Bean 01/15/2019 1:36 PM
[2019-01-15] MEDS: ROCEPHIN 1 GM in NS 50 ML IV SCH (13:57)
--- NOTE | 2019-01-15 14:19 | NEPHROLOGY PROGRESS NOTE ---
DATE: 01/15/2019 TIME SEEN: 0745. SUBJECTIVE: Mr. Lomeli is resting quietly in bed. Head of the bed is elevated. He states that he is feeling so much better though he appears to be using his accessory muscles. OBJECTIVE: VITAL SIGNS: Temperature 98 degrees, blood pressure 150/69, heart rate is 72, respirations 16. The patient is currently on room air. Last recorded saturation was 97%. He has had 802 in, 3775 out to Llamas catheter. LABORATORY DATA: Sodium 136, potassium 4, chloride 101, CO2 17, BUN 135, creatinine 5.4, glucose is 67. His anion gap is 18, calcium is 8.9. White count 7.14, hemoglobin 7.8, hematocrit 25, platelet count 159,000. PHYSICAL EXAMINATION: General: This is a 63-year-old male resting quietly in bed. He appears chronically ill. He is in modest distress secondary to his increased work of breathing. Skin: Warm and dry. HEENT: Normocephalic, atraumatic. Conjunctivae pale. He has VALORIE. Mucous membranes dry. Neck: Supple. Trachea midline. He continues with positive JVD in the upright position. Cardiovascular: The patient is regular rate and rhythm. He has a systolic murmur. Lungs: Expiratory wheezes bilateral. Remains on room air. Abdomen: Soft, nontender. Positive bowel sounds. Genitourinary: Not inspected. Adequate urine out has been documented. Extremities: Continues with 2 to 3+ lower extremity edema with a dressing to his right foot. Neurological: Alert and oriented x3. ASSESSMENT AND PLAN: 1. Acute kidney injury on chronic kidney disease stage 4/5. The patient's BUN and creatinine remain elevated. His BUN has responded slightly to the decrease in his Lasix from q.8 hours to q.12. His creatinine does remain elevated. The patient states that he is feeling fine. His breathing is much improved. We have spoken to him about hemodialysis. I had indicated that his numbers were about the same as they had been yesterday and that it is possibly time for him to start dialysis. Upon this statement, patient states that he requests a second opinion. I have spoken to his primary care nurse in regards with this discussion with his primary physician who is subcontracts manager this weekend. I have requested that the patient talk to his spouse this a.m. and that we could wait until Thursday morning dependent upon his breathing status. The patient states that he agrees with that plan of action. We will follow. 2. Fluid volume overload. Patient does remain on Lasix 200 mg q.12 hours. He has responded nicely to fluid volume with a good urine output. He is still using some accessory muscles but he is on room air. 3. Electrolytes. This is acceptable. 4. Acid-base balance. His CO2 remains at 17. The patient's anion gap is stable. I will start him on a low dose sodium bicarbonate p.o. 5. Anemia. This remains low. I will defer to the primary care team for intervention. 6. Fluid volume overload as mentioned above. 7. Positive wound culture, followed by the primary care team. We have started him on Zosyn renally dosed yesterday. I would like to thank you for allowing us to follow with this patient. Dictated by LUPE Garcia for Bobby Marc MD cc: LUPE Garcia MD Stephen W. Harbin, MD [facility]
[2019-01-15] MEDS: NORCO-7.5 PO PRN ×2 (18:15→22:21)
--- NOTE | 2019-01-15 19:15 | PROGRESS NOTE ---
DATE: 01/15/2019 HISTORY OF PRESENT ILLNESS: This is a 63-year-old male, a patient of Dr. Billy, who was admitted to the hospital on 01/12/2019 for shortness of breath. He has a history of chronic kidney disease and congestive heart failure due to ischemic cardiomyopathy, and is status post previous bypass surgery in 2000. He is still waiting to undergo hemodialysis. The patient also has a right foot infection due to Serratia, for which he is being treated. Now he complains of left shoulder pain and hip pain. PAST MEDICAL HISTORY: Reviewed. PAST SURGICAL HISTORY: Reviewed. MEDICINES: Reviewed. ALLERGIES: Reported to [facility]. REVIEW OF SYSTEMS: Left shoulder pain. No chest pain. No shortness of breath. No GI symptoms. Still has swelling of feet. Right foot has a dressing that was done. He said is ambulating this morning but has some shoulder pain. PHYSICAL EXAMINATION: Temperature is 98.4, pulse is 74, blood pressure 160/80. GENERAL: He obviously is not in respiratory distress. Slightly pale. No jaundice. Chest: Bilateral air entry. Cardiovascular: Distant heart sounds. He has some pain in the left shoulder. Has 2+ pedal edema in both legs. Decreased pulses in both feet. Right foot infection with Serratia infection noted. INVESTIGATIONS: Reported stool for occult blood negative. Wound cultures grew Serratia marcescens. LABORATORY DATA: CBC: White cell count 7.1, hematocrit 25, platelets 159. SMA-7: Sodium 136, potassium 4.0, BUN 135, creatinine 5.4. A1c 6.4. Initial cardiac enzymes were positive. B12/folate levels were normal. ASSESSMENT AND PLAN: 1. Ischemic cardiomyopathy with chronic systolic heart failure. Currently he is on isosorbide and hydralazine 1 tablet p.o. t.i.d., Coreg 25 p.o. b.i.d., and Norvasc 5 mg daily. 2. Hyperlipidemia, on Lipitor 10 mg daily. 3. End-stage kidney disease, on dialysis. He is getting IV Lasix 200 every 12 hours. Waiting for dialysis. 4. Type 2 diabetes. Humulin 70-30, 30 units subcutaneously b.i.d. 5. Benign prostatic hypertrophy on Flomax. 6. Serratia infection, on Zosyn 2.25 IV every 8 hours, ceftriaxone 1 gram every 24 hours. 7. Left shoulder pain. Will check the x-rays and uric acid levels to rule out any gout and will follow up labs. LEVEL OF DOCUMENTATION: 35 minutes. cc: MD Bunny Arvizu MD
[2019-01-15] MEDS: LIPITOR PO SCH (22:21)
[2019-01-16] MEDS: DUONEB (A & A) INH SCH ×4 (03:23→22:25)
[2019-01-16] MEDS: NORCO-7.5 PO PRN ×2 (04:10→22:23)
[2019-01-16] MEDS: ZOSYN 2.25 GM in NS 50 ML IV SCH ×2 (04:17→12:01)
[2019-01-16] MEDS: HEPARIN SUBQ SCH ×3 (05:55→17:37)
[2019-01-16] MEDS: LASIX 200 MG in NS 25 ML IV SCH (05:55)
[2019-01-16] MEDS: HUMULIN R SUBQ SCH ×4 (06:06→22:20)
[2019-01-16 06:54] LABS: BASO# 0.02 X1000 (0.0-0.2); BASO% 0.3 % (0.0-0.8); EOS# 0.19 X1000 (0.0-0.7); EOS% 3.1 % (0.0-10.0); HEMATOCRIT 24.1 % (42.0-52.0); HEMOGLOBIN 7.6 g/dL (14.0-18.0); LYMPH# 1.21 X1000 (1.2-3.4); LYMPH% 19.5 % (20.5-51.1); MCH 26.9 PG (27-31); MCHC 31.5 g/dL (33-37); MCV 85.2 FL (81-99); MONO# 0.95 X1000 (0.11-0.59); MONO% 15.3 % (1.7-9.3); MPV 10.9 FL (7.4-10.4); NEUT# 3.83 X1000 (1.4-6.5); NEUT% 61.8 % (42.2-75.2); PLT 144 X1000 (130-400); RBC 2.83 XMIL (4.7-6.1); RDW 17.3 % (11.5-14.5)
[2019-01-16 07:29] LABS: CALCIUM 8.6 mg/dL (8.8-10.2); CREATININE 5.8 mg/dL (0.7-1.2); POTASSIUM 4.1 mmol/L (3.5-5.1)
[2019-01-16] MEDS ORDERED: NS 50 ML ONE (10:20)
[2019-01-16] MEDS: HUMULIN 70/30 SUBQ SCH ×2 (12:01→22:22)
[2019-01-16] MEDS: COREG PO SCH ×2 (12:03→22:18)
[2019-01-16] MEDS: NORVASC PO SCH (12:04)
[2019-01-16] MEDS: SODIUM BICARBONATE PO SCH ×2 (12:04→22:19)
[2019-01-16] MEDS: BIDIL PO SCH ×3 (12:05→17:18)
[2019-01-16] MEDS: ICAR-C PLUS PO SCH (12:05)
[2019-01-16] MEDS: FLOMAX PO SCH (12:06)
[2019-01-16] MEDS: PEPCID PO SCH ×2 (12:06→22:19)
--- NOTE | 2019-01-16 13:27 | PROGRESS NOTE ---
DATE: 01/16/2019 SUBJECTIVE: The patient is doing better and he has still not decided for dialysis. Left shoulder pain is improving. X-ray of the left shoulder findings discussed with the patient. OBJECTIVE: General: He is more bright today. Vitals: Temperature 97.8 degrees, pulse is 70, blood pressure is 178/84, 100% on room air. Chest: Clear. Heart: Sounds are regular. Abdomen: Belly is soft, nontender. Extremities: 1+ edema in both legs. Right foot has a bandage applied. Left shoulder range of motions are normal. LABORATORIES: CBC: White cell count 6.2, hematocrit 24.1, platelet count 144,000. Sodium 135, potassium 4.1, BUN 136, creatinine 5.8. Glucose is 140. Uric acid 12.8. ASSESSMENT AND PLAN: 1. Left shoulder pain, improving. 2. 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 3. End-stage kidney disease, waiting for dialysis. Patient is getting Lasix now 100 IV q.12 and still has 1+ edema. 4. Ischemic cardiomyopathy with systolic dysfunction. Stable. Currently on amlodipine, Coreg. 5. Gastrointestinal prophylaxis on Pepcid. 6. For pain control, I started him on [place] yesterday. 7. Right foot infection due to Serratia, currently receiving ceftriaxone and Zosyn. It is sensitive to ceftriaxone. We will discontinue the Zosyn. I will follow up. LEVEL OF DOCUMENTATION: 25 minutes. cc: MD Bunny Arvizu MD [facility]
--- NOTE | 2019-01-16 14:06 | NEPHROLOGY PROGRESS NOTE ---
DATE: 01/16/2019 DATE AND TIME: Date seen 01/16/2019; time seen 1045. SUBJECTIVE: Mr. Lomeli is sitting up in bed. He states that he has just gotten back into bed from sitting in the chair for breakfast. He denies any pain or increased work of breathing. OBJECTIVE: His most recent vital signs: Temperature 97.8, blood pressure 174/84, heart rate 70, respirations 16. He is on room air. Last recorded saturation 97%. He has had 1000; in 3100 out to Llamas catheter. LABORATORY DATA: Sodium 135, potassium 4.1, chloride 98, CO2 20, BUN 136, creatinine 5.8, glucose is 140. Anion gap is 17, calcium is 8.6. White count 6.2, hemoglobin 7.6, hematocrit 24.1, with a platelet count of 144,000. PHYSICAL EXAMINATION: General: This is a 63-year-old male resting quietly in bed. He appears chronically ill, in no acute distress. Skin: Warm and dry. HEENT: Normocephalic, atraumatic. Conjunctivae pale. He has VALORIE. Mucous membranes are dry. Neck: Supple. Trachea midline. He does continue with positive JVD. Cardiovascular: He is regular rate and rhythm. Systolic murmur is present. Lungs: Have expiratory wheezes, though these continue to improve. Is noted on deep inspiration. Abdomen: Soft, nontender. Positive bowel sounds. Genitourinary: Not inspected. Llamas catheter is in place with adequate urine out documented. He remains on Lasix 200 mg q.12 hours. Extremities: Patient has 2+ lower extremity edema. This has improved from 3+ in the last several days. He continues with a dressing to his right foot. No drainage noted. Neurologic: He is alert and oriented x 3. ASSESSMENT AND PLAN: 1. Acute kidney injury on chronic kidney disease stage 4, 5. Patient's BUN and creatinine remain elevated. He continues on Lasix 200 mg q.12 hours. We will decrease this to 100 mg q.12 hours and evaluate patient's respiratory status and renal status in the morning. He has had good response to these large doses of Lasix over the last 4 days. The patient states that he would like to wait on dialysis. We will respect his wishes and re-evaluate labs in the a.m. 2. Fluid volume overload. Patient has responded nicely to Lasix 200 mg q.12 hours. Again, we will decrease this to 100 mg q.12 hours and re-evaluate. 3. Electrolytes. These remain acceptable. 4. Anemia. This is low, but stable. 5. Acid-base balance. This is acceptable. 6. Fluid volume overload, as mentioned above. 7. Positive wound cultures followed by the primary care team. He is on renal dosed antibiotics. I would like to thank you for allowing us to follow with this patient. Dictated by LUPE Garcia for Bobby Marc MD cc: LUPE Garcia MD Stephen W. Harbin, MD
[2019-01-16] MEDS: LASIX 100 MG in NS 25 ML IV SCH (17:18)
[2019-01-16] MEDS: ROCEPHIN 1 GM in NS 50 ML IV SCH (17:19)
[2019-01-16] MEDS: LIPITOR PO SCH (22:18)
[2019-01-17] MEDS: NORCO-7.5 PO PRN (02:40)
[2019-01-17] MEDS: DUONEB (A & A) INH SCH ×2 (03:15→10:04)
[2019-01-17] MEDS ORDERED: INSULIN PEN NEEDLES ONE (05:48)
[2019-01-17 06:23] LABS: BASO# 0.01 X1000 (0.0-0.2); BASO% 0.2 % (0.0-0.8); EOS# 0.09 X1000 (0.0-0.7); EOS% 1.7 % (0.0-10.0); HEMATOCRIT 26.1 % (42.0-52.0); HEMOGLOBIN 8.1 g/dL (14.0-18.0); IMM GRAN# 0.02 X1000 (0.0-0.04); IMM GRAN% 0.4 % (0.0-0.5); LYMPH# 0.73 X1000 (1.2-3.4); LYMPH% 14.2 % (20.5-51.1); MCH 26.1 PG (27-31); MCV 84.2 FL (81-99); MONO# 0.49 X1000 (0.11-0.59); MONO% 9.5 % (1.7-9.3); MPV 10.6 FL (7.4-10.4); NEUT# 3.81 X1000 (1.4-6.5); PLT 165 X1000 (130-400); RDW 17.4 % (11.5-14.5); WBC 5.15 X1000 (4.8-10.8)
[2019-01-17] MEDS: LASIX 100 MG in NS 25 ML IV SCH (06:25)
[2019-01-17] MEDS: HUMULIN R SUBQ SCH ×2 (06:26→11:11)
[2019-01-17] MEDS: HEPARIN SUBQ SCH (06:26)
[2019-01-17 06:53] LABS: CALCIUM 9.1 mg/dL (8.8-10.2); CREATININE 6.2 mg/dL (0.7-1.2); POTASSIUM 4.7 mmol/L (3.5-5.1)
[2019-01-17 07:23] VITALS: BP 171/68
[2019-01-17] MEDS: PEPCID PO SCH ×2 (07:54→08:09)
[2019-01-17] MEDS: SODIUM BICARBONATE PO SCH ×2 (07:54→08:08)
[2019-01-17] MEDS: NORVASC PO SCH ×2 (07:54→08:09)
[2019-01-17] MEDS: BIDIL PO SCH ×2 (07:54→08:07)
[2019-01-17] MEDS: COREG PO SCH ×2 (07:54→08:08)
[2019-01-17] MEDS: ICAR-C PLUS PO SCH ×2 (07:54→08:08)
[2019-01-17] MEDS: FLOMAX PO SCH ×2 (07:54→08:08)
[2019-01-17] MEDS: HUMULIN 70/30 SUBQ SCH (11:10)
--- NOTE | 2019-01-17 13:17 | PROGRESS NOTE ---
DATE: 01/17/2019 SUBJECTIVE: The patient says he is feeling better. He has ambulated in the halls without shortness of breath and without difficulty. He is adamant he wants to go home. He has spoken with the nephrology group including nurse practitioner, Flor White, and Dr. Marc as well. He has decided he wants to not pursue dialysis at this time but is adamant he wants to go home and get a second opinion regarding his ESRD. He is aware that he could develop pulmonary edema and from that condition. OBJECTIVE: Vital Signs: Afebrile, pulse 79, respirations 18, blood pressure 171/68, O2 saturation on room air is 95%. CV: RRR. No major murmur. Lungs: CTA. Extremities: With 1 to 2+ lower extremity edema. Right foot in bandage. Neurologic: Nonfocal. Cranial nerves intact. Laboratory Data: Sodium 139, potassium 4.7, chloride 101, CO2 20, BUN 145, creatinine 6.2, blood sugars in the 100s, calcium 9.1. White count 5.15, hemoglobin 8.1, platelets 165,000. ASSESSMENT: 1. Congestive heart failure, acute on chronic, systolic and diastolic, now fairly compensated on high dose Lasix. 2. End-stage renal failure with patient not desiring hemodialysis at this time. 3. Right foot wound with Serratia growing out on culture. Followed at the wound clinic in [place] and followed by physician at [place] as well. 4. Anemia of chronic disease, receiving 1 unit of packed red blood cells transfused during this hospitalization. 5. Insulin-dependent diabetes mellitus, stable on his home dose of insulin. 6. Coronary artery disease. 7. Hypertension. 8. Hyperlipidemia. 9. Benign prostatic hypertrophy. PLAN: We will discontinue Llamas catheter and if he urinates well, he will be able to be discharged home. We will stop IV Rocephin and place him on Omnicef. Continue him on Lasix at 120 mg p.o. b.i.d., and he has been on [*], Coreg, Norvasc, and his home dosage of insulin and aspirin daily. He will make an appointment with nephrology in [place]. Keep him on H2 samir for prophylaxis of GI peptic ulcer disease. He will follow up in my office in 1 to 2 weeks. cc: Bunny Billy MD
--- NOTE | 2019-01-17 17:25 | NEPHROLOGY PROGRESS NOTE ---
DATE: 01/17/2019 TIME SEEN: 0805 SUBJECTIVE: Mr. Lomeli is sitting up in bed, he is eating his breakfast. He states that he has been walking the halls, he is ready to go home. OBJECTIVE: His most recent vital signs temperature 98.8 degrees, blood pressure 155/74, heart rate 84, respirations are 16, he is on room air, last recorded saturation is 100%, he has had 480 mL in, he has had 3400 out to Llamas catheter. He remains on Lasix 100 mg IV q.12 hours. LAB: Sodium 139, potassium 4.7, chloride 101, CO2 20, BUN 145, creatinine 6.2, glucose 180, anion gap 18, calcium 9.1, white count 5.15, hemoglobin 8.1, hematocrit 26.1 with a platelet count of 165,000. PHYSICAL EXAM: This is a 63-year-old male. He is resting quietly in bed. He appears chronically ill. He has mild distress secondary to having developed tremors to upper and lower extremities over the last 24 hours.Skin: Warm and dry. HEENT: Normocephalic, atraumatic. Conjunctivae pale. He has VALORIE. Mucous membranes are moist. Neck: Supple. Trachea midline. No JVD in the upright position. Cardiovascular: Regular rate and rhythm. He has a systolic murmur present. Lungs: Have faint expiratory wheezes bilateral. Remains on room air, equal excursion. Abdomen: Soft, nontender, positive bowel sounds. Genitourinary: Not inspected. His Llamas catheter has been in place. He has had adequate urine out. He remains on Lasix 100 mg IV q.12 hours. Extremities: Has 1+ lower extremity edema, this is improved from 2+ yesterday. These are dependent. His dressing to his right foot remains dry and intact. Neurologic: Patient is awake and alert x3. He has developed asterixis. He has flapping tremors to his upper extremities when requested to hold his arms out or to attempt to hold motion on his lower extremities. ASSESSMENT AND PLAN: 1. Acute kidney injury on chronic kidney disease stage 4/5. Patient has been told that his BUN and creatinine have elevated. He remains on intravenous Lasix to assist with his pulmonary edema. He has had adequate urine output. We have spoken to the patient in regards with these elevated numbers including the fact that he now has asterixis secondary to signs of uremia. The patient states that he is going to talk to his primary physician and be discharged home today. He would like to see Dr. Marc in the office next week. I have informed the patient that he has been receiving intravenous Lasix for his fluid volume overload and that this would need to be changed over to oral to be taken at home. He states that he would also like to get a 2nd opinion of his worsening renal disease. If patient is discharged I would recommend sending the patient to a Nephrology group in [place] for a 2nd opinion within the next 1 to 2 weeks. Otherwise we will attempt to get patient into our office next Thursday when Dr. Marc is available. 2. Electrolytes and acid-base balance. These remain acceptable. 3. Anemia. This remains low but stable. 4. Acute congestive heart failure with fluid volume overload. Patient has had adequate urine response in regards with intravenous Lasix. He has had 100 mg q.12 hours over the last 24 hours. If he is to be discharged home we would recommend 100 mg p.o. b.i.d. or at your discretion. 5. Positive wound cultures. This is followed by the primary care team with antibiotics to be renally dosed. Like to thank you for allowing us to follow with this patient. Dictated by LUPE Garcia for Bobby Marc MD cc: LUPE Garcia MD Stephen W. Harbin, MD [facility]
== END 2019-01-17 14:05 | disposition home or self-care (01) | DRG 291 ==
LOC: ED 22:33 → SUATTDRO 01-12 02:15 → 4N 01-12 02:15
PROVIDERS: ADMIT Family Medicine; ATTEND Family Medicine
CPT/HCPCS: 36430; 71010; 71020; 71045; 71046; 73030; 80048; 80053; 81001; 82270; 82550; 82553; 82607; 82728; 82746; 82948; 83036; 83540; 83550; 83880; 84484; 84550; 85025; 85610; 85730; 86850; 86900; 86901; 86920; 87070; 87077; 87088; 87186; 93005; 94640; 94761; 96374; 96375; 97116; 97162; 97530; 99285; A9270; J0696; J1644; J1940; J2543; J2930; J7040; P9016; XXXXX